=== PATIENT | male | born 1965 | race African-American/Black ===

== ENCOUNTER 2017-10-31 22:01 | Emergency (ER) | payer MEDICAID, OTHER ==
[~2017-10-31] VITALS: Ht 172.7 cm; Wt 86.0 kg
[2017-11-01] MEDS ORDERED: LIDOCAINE HCL 1% 20ML VIAL (Pyxis) INJ INFIL ONE (01:15)
[2017-11-01] MEDS ORDERED: ACETAMINOPHEN 500MG TABLET PO ONE (01:15)
[2017-11-01] MEDS ORDERED: LIDOCAINE HCL/PF 1% 10 MG/ML 5ML VIAL IJ SCH (01:52)
[2017-11-01 02:40] VITALS: BP 123/84
== END 2017-11-01 02:40 | disposition home or self-care (01) ==
LOC: ER 22:01
DX: S61.215A Laceration without foreign body of left ring finger without damage to nail, initial encounter (principal); Y08.89XA Assault by other specified means, initial encounter; Y93.89 Activity, other specified; Y92.89 Other specified places as the place of occurrence of the external cause; Y99.8 Other external cause status
CPT/HCPCS: 12001; 99283; Z7610; J3490

== ENCOUNTER 2018-01-28 18:42 | Emergency (ER) | payer MEDICAID ==
[~2018-01-28] VITALS: Ht 175.3 cm; Wt 88.0 kg
[2018-01-28] MEDS ORDERED: KETOROLAC 60MG/2ML VIAL IM ONE (21:00)
[2018-01-28 21:23] VITALS: BP 135/92
== END 2018-01-28 22:53 | disposition home or self-care (01) ==
LOC: ER 18:58
DX: S39.012A Strain of muscle, fascia and tendon of lower back, initial encounter (principal); M25.562 Pain in left knee; T14.8XXA Other injury of unspecified body region, initial encounter; V49.3XXA Car occupant (driver) (passenger) injured in unspecified nontraffic accident, initial encounter; Y93.89 Activity, other specified; Y92.410 Unspecified street and highway as the place of occurrence of the external cause
CPT/HCPCS: 73562; 96372; 99283; J1885; L1830

== ENCOUNTER 2018-09-01 03:01 | Emergency (ER) | payer MEDICAID ==
[~2018-09-01] VITALS: Ht 175.3 cm; Wt 88.0 kg
[2018-09-01] MEDS ORDERED: SODIUM CHLORIDE 0.9% 1,000 ML IV ONE (03:41)
[2018-09-01] MEDS ORDERED: FAMOTIDINE 20MG/2ML VIAL IV STA (03:41)
[2018-09-01] MEDS ORDERED: ONDANSETRON HCL 4MG/2ML INJ IV STA (03:41)
[2018-09-01 04:30] LABS: BASOPHILS % 0.4 % (0.0-2.0); EOSINOPHILS % 1.4 % (0.0-5.0); HEMATOCRIT. 33.5 % (42.0-52.0); HEMOGLOBIN. 10.5 g/dL (14.0-18.0); LYMPHOCYTES % 30.5 % (20.0-50.0); MEAN CORPUSCULAR HEMOGLOBIN 20.3 pg (28.0-32.0); MEAN CORPUSCULAR VOLUME 64.5 fL (80.0-94.0); MEAN PLATELET VOLUME 7.6 fl (7.4-10.4); MONOCYTES % 10.8 % (2.0-8.0); NEUTROPHILS % 56.9 % (40.0-76.0); PLATELET 209 x1000/uL (130-400); RED CELL DISTRIBUTION WIDTH 17.4 % (11.6-14.6)
[2018-09-01 04:36] LABS: PROTHROMBIN TIME 10.6 sec (9.6-11.0)
[2018-09-01 04:39] LABS: CHLORIDE 110 mEq/L (98-107)
[2018-09-01 04:44] LABS: PLATELET ESTIMATE NORMAL
[2018-09-01 05:28] VITALS: BP 136/72
== END 2018-09-01 05:38 | disposition home or self-care (01) ==
LOC: ER 03:01
DX: K22.6 Gastro-esophageal laceration-hemorrhage syndrome (principal); K92.0 Hematemesis; D50.9 Iron deficiency anemia, unspecified; R05 Cough
CPT/HCPCS: 36415; 43762; 71045; 80053; 83605; 83690; 85025; 85610; 96361; 96374; 96375; 99284; J2405; J3490; J7030; Z7610; 43760